=== PATIENT | female | born 2000 | race Caucasian/White ===

== ENCOUNTER 2021-01-16 17:38 | Emergency (ER) | payer OTHER, SELFPAY ==
[2021-01-16 17:52] VITALS: BP 116/76; PULSE 93; RESP 18; TEMP 36.5; O2SAT 100
--- NOTE | 2021-01-16 18:14 | ED.URI ---
HPI - URI/Sore Throat General Chief Complaint: Upper Respiratory Infection Stated Complaint: Sore Throat Source: patient, family and RN notes reviewed Mode of arrival: ambulatory Limitations: no limitations History of Present Illness HPI Narrative: Patient states she woke up with sore throat this am, rates pain 8/10. Patient states she has headache and nasal congestion. Reports she has not used any OTC medications or therapies. Patient states nothing makes it better and eating or drinking makes it worse. Denies fever, chills, or other symptoms. MD elicited complaint: sore throat Related Data Home Medications Medication Instructions Recorded Confirmed norethindrone-e.estradiol-iron [Lo 1 tablet PO DAILY 01/16/21 01/16/21 Loestrin Fe] Allergies Allergy/AdvReac Type Severity Reaction Status Date / Time No Known Allergies Allergy Verified 01/16/21 18:14 Review of Systems Review of Systems: CONSTITUTIONAL: Denies body aches, fever, chills, or sweats. EYES: Denies visual changes, redness, or discharge. ENT: + rhinorrhea, +congestion, + sore throat. Denies otalgia CARDIOVASCULAR: Denies chest pain, palpitations, or edema. RESPIRATORY: Denies cough or dyspnea. GASTROINTESTINAL: Denies abdominal pain, nausea, vomiting, or diarrhea. GENITOURINARY: Denies dysuria or hematuria. SKIN: Denies rash, itching, or wounds. MUSCULOSKELETAL: Denies back pain, joint pain, or myalgia. NEUROLOGIC: Denies headache, numbness, tingling, or weakness. PSYCH: Denies depression or anxiety. PMFSH Comments At time of signature, I have reviewed and agree with nursing past medical, surgical, social and family history unless otherwise noted. Please see nursing chart for further information. There is no relevant family history pertinent to the presenting complaint. Exam Narrative: GENERAL: Well-appearing, well-nourished, and in no acute distress. HEAD: Normocephalic, atraumatic. EYES: EOMI. No redness or drainage. Conjunctivae normal. ENT: Mucous membranes pink and moist. Nares clear. Clear rhinorrhea. TMs normal bilaterally. Tonsils 3+ with erythema, no exudate. Uvula midline. NECK: Normal AROM. Supple. Bilateral anterior cervical chain lymphadenopathy CHEST: No respiratory distress. Clear to auscultation. HEART: Regular rate and rhythm. No murmur appreciated. Normal peripheral pulses. ABDOMEN: Soft, nontender, nondistended, normal active bowel sounds. MUSCULOSKELETAL: No bony tenderness. EXTREMITIES: Normal range of motion. No edema. SKIN: Warm, dry, no rash. Capillary refill normal. Normal skin turgor. NEURO: No focal deficits. Alert and oriented x3. Gait steady. PSYCH: Normal affect. No signs of depression or anxiety. Course Vital Signs Vital signs: Vital Signs Temperature 97.7 F 01/16/21 17:52 Pulse Rate 93 01/16/21 17:52 Respiratory Rate 18 01/16/21 17:52 Blood Pressure 116/76 01/16/21 17:52 Pulse Oximetry 100 01/16/21 17:52 Temperature 97.7 F 01/16/21 17:52 Pulse Rate 93 01/16/21 17:52 Respiratory Rate 18 01/16/21 17:52 Blood Pressure 116/76 01/16/21 17:52 Pulse Oximetry 100 01/16/21 17:52 Reviewed MDM - URI/Sore Throat Differential Diagnosis Differential diagnosis: Likely upper respiratory infection, viral infection and pharyngitis Lab Data Labs: Strep Screen Presumptive Negative *(Reference Range: Negative)* Strep Screen Presumptive Negative *(Reference Range: Negative)* Critical Care Time Critical Care Time Critical Care Time: No Discharge Plan Discharge Clinical Impression: Upper respiratory infection Patient Disposition: Home, Self-Care Condition: Stable Instructions: Upper Respiratory Infection (ED) Additional Instructions: Your symptoms are likely due to a viral illness, which is not treated with antibiotics. Virus symptoms can last fo
== END 2021-01-16 18:28 | disposition home or self-care (01) ==
PROVIDERS: Emergency Provider Nurse Practitioner; PCP Pediatrics
DX: J06.9 Acute upper respiratory infection, unspecified (principal)
CPT/HCPCS: 87081; 87880; 99213; G0463

== ENCOUNTER 2021-11-17 10:35 | Emergency (ER) | payer OTHER, SELFPAY ==
--- NOTE | 2021-11-17 10:44 | ED.URI ---
HPI - URI/Sore Throat General Chief Complaint: Upper Respiratory Infection Stated Complaint: uri Time Seen by Provider: 11/17/21 11:02 Source: patient and RN notes reviewed Mode of arrival: ambulatory Limitations: no limitations History of Present Illness HPI Narrative: 21-year-old female presents to the [facility] with needing a work note because she tested positive for COVID at home. Patient reports that her symptoms of a sore throat, cough and generalized body aches started yesterday. No treatment prior Related Data Home Medications Medication Instructions Recorded Confirmed norethindrone 1 mg-ethinyl 1 tablet PO DAILY 01/16/21 11/17/21 estradiol 10 mcg (24)-iron 10 mcg(2) tablet (Lo Loestrin Fe) multivitamin 1 tablet PO DAILY 08/29/21 11/17/21 vitamin B complex (Complex B-100 1 tablet PO DAILY 08/29/21 11/17/21 tablet,extended release) triamcinolone acetonide 0.1 % 1 applic topical DIRECTED 11/17/21 11/17/21 topical cream Allergies Allergy/AdvReac Type Severity Reaction Status Date / Time No Known Allergies Allergy Verified 11/17/21 11:22 Review of Systems Review of Systems: All systems reviewed & are unremarkable except as noted in HPI and below Constitutional: Constitutional: Reports no additional constitutional complaints, Reports body ache(s), Denies chills, Reports fatigue, Denies fever(s), Reports headache(s) and Reports lethargy Eyes: Eyes: Reports no additional eye complaints ENT: Reports as per HPI and Reports sore throat Cardiovascular: Cardiovascular: Reports no additional cardiovascular complaints Respiratory: Respiratory: Reports no additional respiratory complaints Gastrointestinal: Gastrointestinal: Reports no additional gastrointestinal complaints Musculoskeletal: Musculoskeletal: Reports no additional musculoskeletal complaints Integumentary/Breasts: Skin/Breast: Reports system reviewed and no additional complaints, except as docu Neurologic: Reports system reviewed and no additional complaints, except as documented Psychiatric: Psychiatric: Reports no additional psychiatric complaints Allergic/Immunologic: Allergic/Immunologic: Reports no additional allergic/immunologic complaints PMFSH Past Medical History Medical History Anemia Anxiety Depression Migraine Surgical History Surgical History No pertinent past surgical history Family History Family History Mother Asthma Hypertension Depression Anxiety Father Hypertension Sibling Hypertension Grandparent Hypertension Social History Social History Smoking status: Never smoker Alcohol intake: never Substance use: never Substance use type: does not use Comments At the time of my signature, I reviewed and agree with the nursing past medical, surgical, social, and family history. There is no relevant family history pertinent to the patient complaint. Exam Const: General: healthy appearing, no acute distress and alert Nutritional Appearance: well nourished Orientation/consciousness: patient oriented x3 Limitations: no limitations HENMT: Head: normal to inspection Ears: external ears normal, TM's normal bilaterally and EAC's normal General nose exam: Normal external nose present Face and sinus: normal facial exam Throat: posterior oropharynx normal and uvula midline Eyes: General: appearance normal, both eyes and all related structures Pupils: Equal, round and reactive pupils present Neck: Neck: normal visual inspection, no lymphadenopathy and no meningeal signs Chest: Chest palpation & inspection: normal inspection of the chest Resp: Effort & Inspection: normal respiratory effort and no use of accessory muscles Auscultation: clear to auscultation bilaterally, n
[2021-11-17 10:47] VITALS: BP 95/59; PULSE 115; RESP 18; TEMP 37.8; O2SAT 97
== END 2021-11-17 11:16 | disposition home or self-care (01) ==
PROVIDERS: Emergency Provider Nurse Practitioner; PCP Physician Assistant
DX: U07.1 COVID-19 (principal); F41.9 Anxiety disorder, unspecified; F32.A Depression, unspecified
CPT/HCPCS: 87426; 99213; C9803; G0463

== ENCOUNTER → 2022-07-18 15:20 | Outpatient (CLI) | payer OTHER, SELFPAY ==
--- NOTE | ~2022-07-18 | US_ITS ---
EXAMINATION: US thyroid DATE: 07/18/2022 15:35 INDICATION: Localized swelling, mass and lump, neck. TECHNIQUE: Multiple ultrasound images of the thyroid were obtained. COMPARISON: None. FINDINGS: The right thyroid lobe measures 4.7 x 1.1 x 1.7 cm. The left thyroid lobe measures 3.7 x 1.3 x 1.3 c m. There is normal echotexture and echogenicity throughout the thyroid gland. No discrete nodules id entified. Normal vascular flow is present. IMPRESSION: 1. Normal thyroid. Reviewed, dictated and finalized at location A. IMPRESSION: 1. Normal thyroid.
== END ==
PROVIDERS: PCP Physician Assistant; Visit Provider Physician Assistant
DX: R22.1 Localized swelling, mass and lump, neck (principal)
CPT/HCPCS: 76536

== ENCOUNTER 2022-10-11 08:29 | Outpatient (CLI) | payer OTHER, SELFPAY ==
--- NOTE | 2022-11-01 10:42 | WPDSLEEPSTUD ---
Sleep Study Date of Study: 10/11/22 Ordering Provider: Brooklyn Monaco DO Interpreting Physician: Cristina Nolasco MD Sleep Study Type: Multiple Sleep Latency Test Height: 1.55 m Weight: 50.349 kg Body Mass Index: 20.9 Neck Circumference (inches): 12 [place]: 14 Reason for Sleep Study Hypersomnolence Sleep History Tiffany Maier is a 22-year-old female with history of hypersomnolence who is having a basic polysomnogram followed by MSLT for complaints of excessive daytime sleepiness, randomly falling asleep beginning at the age of 14. She falls asleep in inappropriate places such as school, work and while driving. She is tired all the time. She Never awakens from sleep short of breath. She never awakens at night with heartburn, belching or cough.??She never snores, never snores loudly enough that others complain. She rarely has trouble sleeping when she has a cold. She never suddenly wakes up gasping for breath during the night. She never has breathing problems at night. She never sweats excessively at night. She never notices her heart pounding or beating irregularly during the night. She constantly falls asleep during the day, frequently falls asleep involuntarily and occasionally falls asleep while driving. She never experiences loss of muscle tone with strong emotion. S she constantly experiences daytime difficulty at work and at school due to excessive sleepiness. She never feels paralyzed on waking or falling asleep. She rarely experiences vivid dreams upon waking or falling asleep. She never feels afraid of going to sleep. She rarely has nightmares. She rarely recalls her dreams. She frequently has thoughts racing through her mind. She frequently feels sad or depressed. She frequently feels anxiety or worry about things. She never notices parts of her body jerk. She constantly kicks during the night. She occasionally feels crawling or aching feelings in her legs. She rarely feels leg pain at night. She never grinds her teeth or has morning jaw pain. She frequently feels bothered by pain during the day and awakened by pain during the night. She never wakes up feeling stiff in the morning. she occasionally awakens with sore achy muscles. She frequently wakes up with pain in the neck and spine. She has memory problems, fatigue, palpitations and feels depressed. On occasion she takes melatonin to help go to sleep. ? ? Normal bedtime is Between 11:30 p.m. and 12 midnight, taking 10 minutes or sometimes up to 1 hour to fall asleep. She typically wakes twice at night for just a minute or 2. She may sit up, fall back asleep, open her eyes and look around. She wakes the morning between 7:30 a.m. and 8:30 a.m.. On weekends, her bedtime schedule is the same, 11:30 p.m. to 1:00 a.m. and she wakes between 8:30 a.m. and 9:00 a.m.., taking about [ ] fall asleep. She typically gets about 7 to 8 hours of sleep per night. In general she does take naps in the afternoon or evening. Short naps are not refreshing. She is usually drowsy for 2 hours after waking. She feels better in the evening compared to other times of day. Habits:??Tobacco: Never Caffeine : 1-2 per day. Alcohol : None. Recreational substances : none PMFSH Past Medical History Medical History Anemia Anxiety Depression Migraine Surgical History Surgical History No pertinent past surgical history Family History Family History Mother Asthma Hypertension Depression Anxiety Father Hypertension Sibling Hypertension Grandparent Hypertension Social History Social History Smoking status: Never smoker Alcohol intake: never Substance use: never Substance use type: does not use Lack of Transportation: No
[2022-11-01 11:49] VITALS: BMI 20.9
--- NOTE | 2022-11-01 11:49 | WPDSLEEPSTUD ---
Sleep Study Date of Study: 10/11/22 Ordering Provider: Brooklyn Monaco DO Interpreting Physician: Cristina Nolasco MD Sleep Study Type: Multiple Sleep Latency Test Height: 1.55 m Weight: 50.349 kg Body Mass Index: 20.9 Neck Circumference (inches): 12 [place]: 14 Reason for Sleep Study Excessive daytime sleepiness Sleep History Please see sleep history from nocturnal polysomnogram the night before the study. She had a normal sleep study with over 6 hours of sleep and an AHI of 0. She proceeded to an MSLT. [facility] Past Medical History Medical History Anemia Anxiety Depression Migraine Surgical History Surgical History No pertinent past surgical history Family History Family History Mother Asthma Hypertension Depression Anxiety Father Hypertension Sibling Hypertension Grandparent Hypertension Social History Social History Smoking status: Never smoker Alcohol intake: never Substance use: never Substance use type: does not use Lack of Transportation: No Lack of Food: Never True Current Housing: I Have Housing Concerned About Future Housing: No Difficulty Paying Gas/Electric Bills: No Difficulty Paying for Meds: No Currently Unemployed: No Education: High School Diploma/GED Difficulty w/ Childcare or Family Care: No Living arrangements: with family Gender identity (if verbalized by the patient): Female Medications Home Medications Medication Instructions Recorded Confirmed Type norethindrone 1 mg-ethinyl 1 tablet PO DAILY 01/16/21 08/08/22 History estradiol 10 mcg (24)-iron 10 mcg(2) tablet (Lo Loestrin Fe) sumatriptan succinate 50 mg tablet See Rx Instructions PO .COMPLEX 08/13/22 10/17/22 Rx #10 tabs dextroamphetamine-amphetamine ER 20 mg PO BID #60 caps 10/09/22 Rx 20 mg 24hr capsule,extend release (Adderall XR) sertraline 25 mg tablet 25 mg PO DAILY #7 tabs 10/17/22 10/17/22 Rx sertraline 50 mg tablet 50 mg PO DAILY #90 tabs 10/17/22 10/17/22 Rx Sleep Procedure The recording montage for the MSLT includes central EEG (C3-A2, C4-A1) and occipital (O1-A2, O2-A1) derivations, left and right eye electrooculograms (EOGs), mental/submental electromyogram (EMG), and electrocardiogram (EKG). Nap 1 commenced at The recording montage for the MSLT includes central EEG (C3-A2, C4-A1) and occipital (O1-A2, O2-A1) derivations, left and right eye electrooculograms (EOGs), mental/submental electromyogram (EMG), and electrocardiogram (EKG). Nap 1 commenced at 8:15 a.m.. Sleep latency 11.8 minutes. No REM. Nap 1 was terminated at 8:42 a.m.. The patient said that sleep occurred. The patient reported no dreaming. Nap 2 commenced at 10:10 a.m.. Sleep latency 8.9 minutes. No REM. Nap 2 was terminated at 1034. The patient said that sleep did not occur. The patient reported no dreaming. Nap 3 commenced at 12 12 p.m. Sleep latency 16.4 minutes. No REM. Nap 3 was terminated at 12:44 p.m. The patient said that sleep occurred. The patient reported no dreaming. Nap 4 commenced at 2:08 p.m.. Sleep latency 17.5 minutes. No REM. Nap 4 was terminated at 2:42 p.m.. The patient said that sleep occurred. The patient reported no dreaming. The 5th nap was canceled because the prior 4 naps showed a normal sleep latency and no sleep onset REM periods. The mean sleep latency is 13.7 minutes, normal. This test does not support a diagnosis of narcolepsy or idiopathic hypersomnolence. She perceived sleep on 3 of 4 naps, slept on all 4 naps. Sleep Architecture NA Respiratory Analysis NA Arousals NA Periodic Limb Movements NA Oximetry Data NA Snoring Profile NA Cardiac Profile NA EEG Profile NA Assess
[2022-11-01 12:08] VITALS: BMI 20.9
== END 2022-10-12 15:39 | disposition home or self-care (01) ==
PROVIDERS: PCP Family Medicine; Visit Provider Family Medicine
DX: G47.19 Other hypersomnia (principal)
CPT/HCPCS: 95805; 95810; 99199

== ENCOUNTER → 2022-11-26 15:00 | Outpatient (CLI) | payer OTHER, SELFPAY ==
--- NOTE | ~2022-11-26 | MR_ITS ---
EXAMINATION: MR brain/brain stem wo/w con DATE: 11/26/2022 15:42 INDICATION: Worsening hypersomnia. TECHNIQUE: Magnetic resonance imaging (MRI) of the brain and brainstem was performed without and with 10 mL MultiHance intravenous contrast. COMPARISON: None. FINDINGS: There is no intracranial hemorrhage, acute infarction, or abnormal intracranial mass lesion . The ventricles are normal in size. The paranasal sinuses are clear. The orbits are normal. The mast oid air cells are normal. IMPRESSION: 1. Normal brain. Reviewed, dictated and finalized at location A. IMPRESSION: 1. Normal brain.
== END ==
PROVIDERS: PCP Physician Assistant; Visit Provider Family Medicine
DX: G47.19 Other hypersomnia (principal)
CPT/HCPCS: 70553; A9577

== ENCOUNTER 2023-03-04 08:28 | Emergency (ER) | payer OTHER, SELFPAY ==
[2023-03-04 08:40] VITALS: BP 101/85; PULSE 102; RESP 16; TEMP 37; O2SAT 100
--- NOTE | 2023-03-04 08:56 | ED.URI ---
HPI - URI/Sore Throat General Chief Complaint: Upper Respiratory Infection Stated Complaint: Sinus Time Seen by Provider: 03/04/23 08:59 Source: patient and RN notes reviewed Mode of arrival: ambulatory Limitations: no limitations History of Present Illness HPI Narrative: 23-year-old female presents with concern for nasal congestion, rhinorrhea, sore throat that started last night. She reports chills and body aches night. She reports taking pseudoephedrine and Tylenol. She reports she has been around people with similar symptoms MD elicited complaint: sore throat and nasal congestion Related Data Home Medications Medication Instructions Recorded Confirmed norethindrone 1 mg-ethinyl 1 tablet PO DAILY 01/16/21 03/04/23 estradiol 10 mcg (24)-iron 10 mcg(2) tablet (Lo Loestrin Fe) Allergies Allergy/AdvReac Type Severity Reaction Status Date / Time No Known Allergies Allergy Verified 03/04/23 08:33 Review of Systems Review of Systems: CONSTITUTIONAL: Reports malaise, chills EYES: Denies visual changes, redness, or discharge. ENT: Reports rhinorrhea, congestion, and sore throat. CARDIOVASCULAR: Denies chest pain, palpitations, or edema. RESPIRATORY: Reports cough. Denies dyspnea. GASTROINTESTINAL: Denies abdominal pain, nausea, vomiting, diarrhea SKIN: Denies rash or itching. MUSCULOSKELETAL: Reports myalgia. NEUROLOGIC: Denies headache. All systems reviewed & are unremarkable except as noted in HPI and below PMFSH Past Medical History Medical History Anemia Anxiety Depression Migraine Surgical History Surgical History No pertinent past surgical history Family History Family History Mother Asthma Hypertension Depression Anxiety Father Hypertension Sibling Hypertension Grandparent Hypertension Social History Social History Smoking status: Never smoker Alcohol intake: never Substance use: never Substance use type: does not use Lack of Transportation: No Lack of Food: Never True Current Housing: I Have Housing Concerned About Future Housing: No Difficulty Paying Gas/Electric Bills: No Difficulty Paying for Meds: No Currently Unemployed: No Education: High School Diploma/GED Difficulty w/ Childcare or Family Care: No Living arrangements: with family Gender identity (if verbalized by the patient): Female Comments At time of signature, agree with nursing past medical, surgical, social and family history. There is no relevant family history pertinent to the presenting complaint Exam Narrative: GENERAL: Well-appearing, well-nourished, and in no acute distress. HEAD: Normocephalic EYES: PERRLA, conjunctivae clear ENT: Nares clear, clear discharge. Mucous membranes moist. TM pearly meraz with dull light reflex bilaterally; no tragal tenderness. Oropharynx not erythematous without lesions. Tonsils not enlarged and without exudate, no drooling, no hoarseness, no trismus, uvula midline. NECK: Supple. No lymphadenopathy CHEST: Clear to auscultation, breath sounds equal. No wheezing, rhonchi, rales, or stridor. No respiratory distress, speaks in full sentences. HEART: Regular rate and rhythm. No murmur heard. SKIN: Warm, dry, no rash. NEURO: Alert and oriented x3. PSYCH: Normal mood and affect Course Course Emergency Course: Patient is aware of diagnosis, understands and agrees to treatment plan. Anticipatory guidance given. Patient agrees to follow-up as directed and is aware of reasons to seek care at the emergency department. Portions of this record may have been created with voice recognition software Level of Care: Express Care Visit Vital Signs Vital signs: Vital Signs Temperature 98.6 F 03/04/23 08:40 P
== END 2023-03-04 09:10 | disposition home or self-care (01) ==
PROVIDERS: Emergency Provider Nurse Practitioner; PCP Physician Assistant
DX: J06.9 Acute upper respiratory infection, unspecified (principal); Z20.822 Contact with and (suspected) exposure to COVID-19
CPT/HCPCS: 87081; 87426; 87880; 99213; C9803; G0463

== ENCOUNTER 2023-05-17 18:21 | Emergency (ER) | payer OTHER, SELFPAY ==
--- NOTE | ~2023-05-17 | XR_ITS ---
EXAMINATION: XR sacrum coccyx min 2V DATE: 05/17/2023 18:44 INDICATION: Sacrococcygeal pain post fall on ice one week prior TECHNIQUE: AP, angled AP and lateral views of the sacrum and coccyx were obtained. COMPARISON: Obstructive series dated 10/22/2008 FINDINGS: Mild lower lumbar levocurvature. Sacral arches are intact. No fractures. Lateral hip and sacroiliac j oint spaces are normal. IMPRESSION: 1. No acute osseous abnormality. Reviewed, dictated and finalized at location A. [employer]
--- NOTE | 2023-05-17 18:31 | ED.BACK ---
HPI - Back Pain/Injury General Chief Complaint: Fall Stated Complaint: Lower Back Pain Time Seen by Provider: 05/17/23 18:30 Source: patient Mode of arrival: ambulatory Limitations: no limitations History of Present Illness HPI Narrative: Tiffany is a 23-year-old female patient presenting to the clinic today with complaints tailbone/sacrum pain. She reports last week she fell on the ice on concrete steps and landed on her butt. She is complaining of pain was worse with movement. Related Data Home Medications Medication Instructions Recorded Confirmed norethindrone 1 mg-ethinyl 1 tablet PO DAILY 01/16/21 05/17/23 estradiol 10 mcg (24)-iron 10 mcg(2) tablet (Lo Loestrin Fe) Allergies Allergy/AdvReac Type Severity Reaction Status Date / Time No Known Allergies Allergy Verified 05/17/23 18:32 Review of Systems Review of Systems: Pertinent positives per HPI. Patient denies any fever, chills, rash, headache, visual changes, dizziness, cough, runny nose, sore throat, shortness of breath, chest pain, palpitations, nausea, vomiting, diarrhea, constipation, abdominal pain, or any urinary issues. [facility] Past Medical History Medical History Anemia Anxiety Depression Migraine Surgical History Surgical History No pertinent past surgical history Family History Family History Mother Asthma Hypertension Depression Anxiety Father Hypertension Sibling Hypertension Grandparent Hypertension Social History Social History Smoking status: Never smoker Alcohol intake: never Substance use: never Substance use type: does not use Lack of Transportation: No Lack of Food: Never True Current Housing: I Have Housing Concerned About Future Housing: No Difficulty Paying Gas/Electric Bills: No Difficulty Paying for Meds: No Currently Unemployed: No Education: High School Diploma/GED Difficulty w/ Childcare or Family Care: No Living arrangements: with family Gender identity (if verbalized by the patient): Female Comments At the time of my signature, I reviewed and agree with the nursing past medical, surgical, social, and family history. There is no relevant family history pertinent to the patient complaint. Exam Narrative: General: Well-developed, well nourished, in no apparent distress Head: Normocephalic, atraumatic. Cardio: Regular rate and rhythm, s1 and s2 normal, no murmur appreciated. Resp: Clear to auscultation bilaterally, no rhonchi, rales, wheezing or rubs. Musculoskeletal: No deformity, no bruising or swelling noted, mild tender to palpation over the coccyx, grossly normal range of motion, muscle strength strong and equal, peripheral pulse strong, no edema, no cyanosis, normal gait and station Course Course Emergency Course: Portions of this record may have been created with voice recognition software. Level of Care: Express Care Visit Vital Signs Vital signs: Vital signs reviewed MDM - Back Pain/Injury MDM Narrative Medical decision making narrative: At the time of visit patient is resting comfortably on the exam table. Patient appears to be nontoxic. Diagnostics: Coccyx/sacrum x-ray was performed was negative for any sign of fracture or malalignment. Plan: I suspect patient has contusion of the coccyx/coccydynia. Supportive measures were discussed with the patient and they voiced understanding discharge instructions and agrees to treatment plan. Return precautions reviewed Differential Diagnosis Differential diagnosis: Likely other (Tailbone pain, tailbone fracture, contusion) Discharge Plan Discharge Clinical Impression: Coccyxdynia Contusion of coccyx Qualifiers: Encounter type: initial encounter Mike
[2023-05-17 18:32] VITALS: BP 115/68; PULSE 107; RESP 16; TEMP 36.6; O2SAT 100
== END 2023-05-17 19:21 | disposition home or self-care (01) ==
PROVIDERS: Emergency Provider Nurse Practitioner Family; PCP Physician Assistant
DX: M53.3 Sacrococcygeal disorders, not elsewhere classified (principal); S30.0XXA Contusion of lower back and pelvis, initial encounter; W00.0XXA Fall on same level due to ice and snow, initial encounter
CPT/HCPCS: 72220; 99213; G0463

== ENCOUNTER 2024-02-28 13:32 | Outpatient (CLI) | payer OTHER, SELFPAY ==
--- NOTE | ~2024-02-28 | MR_ITS ---
EXAMINATION: MR lumbar spine wo/w con DATE: 02/28/2024 14:18 INDICATION: Low back pain TECHNIQUE: Magnetic resonance imaging (MRI) of the lumbar spine was performed without intravenous con trast. Sequences included sagittal T2-weighted FSE, sagittal T2-weighted FS FSE, sagittal T1-weighted FSE, and axial T2-weighted FSE. COMPARISON: None FINDINGS: Alignment is normal. Vertebral body heights are normal. Normal marrow signal. Disc heights are mari l. Mild annular fissures at L2-L3, L3-L4 and L4-L5. The conus medullaris terminates at L1-L2. There i s normal signal in the caudal spinal cord. No abnormally enhancing lesions identified. Paravertebral soft tissues are unremarkable. The following disc levels are specifically discussed: T12-L1: Disc is minimally bulging. There is no facet joint osteoarthritis. There is no neural foramin al stenosis. There is no central canal stenosis. L1-L2: Disc is mildly bulging. There is no facet joint osteoarthritis. There is no neural foraminal s tenosis. There is minimal central canal stenosis. L2-L3: Disc is mildly bulging. There is no facet joint osteoarthritis. There is no neural foraminal s tenosis. There is minimal central canal stenosis. L3-L4: Disc is mildly bulging. There is mild right facet joint osteoarthritis. There is no neural for aminal stenosis. There is minimal central canal stenosis. L4-L5: Disc is mildly bulging. There is no facet joint osteoarthritis. There is minimal bilateral theresa ral foraminal stenosis. There is minimal central canal stenosis. L5-S1: Small central disc protrusion. There is mild bilateral facet joint osteoarthritis. There is no neural foraminal stenosis. There is no central canal stenosis. IMPRESSION: 1. Minimal to mild lumbar spondylosis. Reviewed, dictated and finalized at location B. JAVA PROGRAMMER
== END 2024-02-28 13:33 | disposition home or self-care (01) ==
LOC: MICIMG 13:32
PROVIDERS: PCP Family Medicine; Visit Provider Student in an Organized Health Care Education/Training Program
DX: M54.50 Low back pain, unspecified (principal)
CPT/HCPCS: 72158; A9577

== ENCOUNTER 2024-05-02 09:40 | Emergency (ER) | payer SELFPAY ==
[2024-05-02 09:52] VITALS: BP 126/77; PULSE 104; RESP 14; TEMP 36.8; O2SAT 100
--- NOTE | 2024-05-02 10:11 | ED_ITS ---
HPI - URI/Sore Throat General Chief Complaint: Upper Respiratory Infection Stated Complaint: Sore Throat Time Seen by Provider: 05/02/24 10:10 Source: patient Mode of arrival: ambulatory Limitations: no limitations History of Present Illness HPI Narrative: Indy is a 24-year-old female patient presenting to the clinic today with complaints of runny nose, nonproductive cough, postnasal drip, and sore throat x6 days. Denies any fevers, chills, or body aches. No chest pain or shortness of breath. No known exposure to any sick contacts MD elicited complaint: cough, sore throat and nasal congestion Related Data Home Medications ?Medication ?Instructions ?Recorded ?Confirmed ?Last Taken ?Type norethindrone 1 mg-ethinyl 1 tablet PO DAILY 01/16/21 08/15/23 Unknown History estradiol 10 mcg (24)-iron 10 mcg(2) tablet (Lo Loestrin Fe) lisdexamfetamine 40 mg capsule mg 05/02/24 Unknown History sumatriptan succinate 50 mg tablet mg PO 05/02/24 Unknown History Allergies Allergy/AdvReac Type Severity Reaction Status Date / Time No Known Allergies Allergy Verified 05/02/24 09:53 Review of Systems Review of Systems: Pertinent positives per HPI. Patient denies any fever, chills, rash, headache, visual changes, dizziness, shortness of breath, chest pain, palpitations, nausea, vomiting, diarrhea, constipation, abdominal pain, or any urinary issues. PMFSH Past Medical History Medical History Anxiety Depression Migraine Anemia Surgical History Surgical History No pertinent past surgical history Family History Family History Mother Asthma Hypertension Depression Anxiety Father Hypertension Sibling Hypertension Grandparent Hypertension Social History Social History Smoking status: Never smoker Alcohol intake: never Substance use: never Substance use type: does not use Lack of Transportation: No Lack of Food: Never True Current Housing: I Have Housing Concerned About Future Housing: No Difficulty Paying Gas/Electric Bills: No Difficulty Paying for Meds: No Currently Unemployed: No Education: High School Diploma/GED Difficulty w/ Childcare or Family Care: No Living arrangements: with family Gender identity (if verbalized by the patient): Female Comments At the time of my signature, I reviewed and agree with the nursing past medical, surgical, social, and family history. There is no relevant family history pertinent to the patient complaint. Exam Narrative: General: Well-developed, well nourished, in no apparent distress Head: Normocephalic, atraumatic Eyes: Pupils equally round and reactive to light bilaterally, EOM intact, sclera and conjunctive clear, no discharge, lids normal Ears: TMs intact and clear, ear canals clear, no drainage, grossly hearing normal. Nose: Nares patent, clear nasal discharge, mild inflammation, no sinus tenderness. Mouth: Oral pharynx without lesions or masses, good dentition, MMM. Postnasal drip Neck: Supple, trachea midline, no enlargement of anterior or posterior cervical nodes, no thyroid masses or goiter palpable. Cardio: Regular rate and rhythm, s1 and s2 normal, no murmur appreciated. Resp: Clear to auscultation bilaterally, no rhonchi, rales, wheezing or rubs Course Course Emergency Course: Portions of this record may have been created with voice recognition software. Level of Care: Express Care Visit Vital Signs Vital signs: Vital Signs Temperature 36.8 C 05/02/24 09:52 Pulse Rate 104 H 05/02/24 09:52 Respiratory Rate 14 05/02/24 09:52 Blood Pressure 126/77 05/02/24 09:52 Pulse Oximetry 100 05/02/24 09:52 Oxygen Delivery Room Air 05/02/24 09:52 Temperature 36.8 C 05/02/24 09:52 Pulse Rate 104 H 05/02/24 09:52 Respiratory Rate 14 05/02/24 09:52 Blood Pressure 126/77 05/02/24 09:52 Pulse Oximetry 100 05/02/24 09:52 Oxygen Delivery Room Air 05/02/24 09:52 Vital signs reviewed MDM - URI/Sore Throat MDM Narrative Medical decision making narrative: At the time of visit patient is resting comfortably on the exam table. Patient appears to be nontoxic. Labs: Strep, COVID, and influenza testing was all performed. All testing was negative. We will send strep for culture. Plan: I suspect patient has URI/pharyngitis/postnasal drip. Will send in prescription for prednisone. Supportive measures were discussed with the patient and they voiced understanding discharge instructions and agrees to treatment plan. Return precautions reviewed Differential Diagnosis Differential diagnosis: Likely upper respiratory infection, otitis media, sinusitis, viral infection, bronchitis, influenza, pharyngitis and other (COVID) Discharge Plan Discharge Clinical Impression: Upper respiratory infection Qualifiers: URI type: unspecified URI Qualified Code(s): J06.9 - Acute upper respiratory infection, unspecified Pharyngitis Qualifiers: Pharyngitis/tonsillitis etiology: unspecified etiology Qualified Code(s): J02.9 - Acute pharyngitis, unspecified Patient Disposition: Home, Self-Care Condition: Stable Instructions: Antibiotic Form, Pharyngitis (ED), Cold Symptoms (ED) Additional Instructions: Strep, COVID, and influenza testing was all negative in the clinic today. We will send strep for culture. Take prescription medications only as prescribed-prednisone Increase fluids and stay well hydrated Tylenol/motrin for pain/fever Flonase and OTC antihistamines as directed Vicks vapor rub to open sinuses Sinus rinses for congestion Cepacol spray, cough drops, throat lozenges, warm tea with honey/lemon, gargle salt water to soothe throat BRAT diet for diarrhea Clear liquids x 24 hours then advance as tolerated for nausea/vomiting Go to the ED if you develop a worsening in your condition- high fever not controlled by Tylenol or Motrin, dehydration, weakness, lethargy, shortness of breath, or chest pain. Follow up with your PCP in 3-5 days if symptoms persist. Patient Language: Persian Prescriptions: New prednisone 20 mg tablet 40 mg PO DAILY 5 Days Qty: 10 0RF No Action Lo Loestrin Fe 1 mg-10 mcg (24)/10 mcg (2) tablet 1 tablet PO DAILY lisdexamfetamine 40 mg capsule sumatriptan succinate 50 mg tablet PO Follow-up/Referrals: Judith Frankel MD [Primary Care Provider] - Time of Disposition: 10:25 Quality NIHSS Nursing Documentation ED NIHSS nursing documentation: reviewed/agree
[2024-05-02 10:32] LABS: EDCOVIDSCREEN Negative (Negative); EDINFLUASCREEN Negative (Negative); EDINFLUBSCREEN Negative (Negative)
[2024-05-02 10:32] LABS: EDSTREPNEGPOS1 Negative (Negative)
== END 2024-05-02 10:30 | disposition home or self-care (01) ==
PROVIDERS: Emergency Provider Nurse Practitioner Family; PCP Family Medicine
DX: J06.9 Acute upper respiratory infection, unspecified (principal); J02.9 Acute pharyngitis, unspecified; Z20.822 Contact with and (suspected) exposure to COVID-19
CPT/HCPCS: 87081; 87426; 87804; 87880; 99213; G0463

== ENCOUNTER 2024-06-29 13:46 | Outpatient (CLI) | payer OTHER, SELFPAY ==
--- NOTE | ~2024-06-29 | MR_ITS ---
MRI of the pelvis Clinical history sacroiliitis TECHNIQUE: Coronal T1-weighted and STIR images, axial T1-weighted and STIR images, and sagittal T1-we ighted and STIR images were acquired through the pelvis. FINDINGS: There is no fracture or avascular necrosis of either hip. Bone marrow signals in the proxim al femora and pelvic bones are unremarkable. Bilateral hip joint spaces are intact. Bilateral SI join ts are intact. No evidence of reactive marrow edema, degenerative change, or inflammatory change. No joint effusion seen. No joint space widening. No ankylosis. Visualized musculature about the pelvis is intact. No muscle atrophy or edema. Visualized tendons are intact. No soft tissue mass or fluid collection. IMPRESSION: No significant abnormality. No evidence for sacroiliitis. Reviewed, dictated and finalized at [facility].
== END 2024-06-29 13:47 | disposition home or self-care (01) ==
LOC: MICIMG 13:47
PROVIDERS: PCP Family Medicine; Visit Provider Anesthesiology Pain Medicine
DX: M46.1 Sacroiliitis, not elsewhere classified (principal); M47.816 Spondylosis without myelopathy or radiculopathy, lumbar region; F32.1 Major depressive disorder, single episode, moderate; F41.9 Anxiety disorder, unspecified
CPT/HCPCS: 72195

== ENCOUNTER 2024-09-08 07:37 | Day surgery (SDC) | payer OTHER, SELFPAY ==
[2024-08-21 13:40] VITALS: BMI 21.3
--- NOTE | ~2024-09-08 | XR_ITS ---
INTRAOPERATIVE FLUOROSCOPY: CLINICAL HISTORY: 24 years old Female; LEFT INTRA-ARTICULAR SI JT INJ PROCEDURE COMMENTS: Limited intraoperative fluoroscopy of the pelvis was performed. CUMULATIVE DOSE: 2.9 mGy FLUOROSCOPY TIME: 25 seconds FINDINGS/IMPRESSION: Please refer to operative note for further details. Reviewed, dictated and finalized at location A.
--- OUTSIDE RECORDS SUMMARY | 2024-09-08 07:51 | XMS_ITS | Clinical Summary ---
Author Organization [facility] Address [address], [facility] [address] [place] [address] Phone Care Team Providers Care Gel Coat Sprayer Name Role Phone Marco Antonio Perez MD Unavailable R[place]al Hills Primary Care Provider Allergies No known active allergies Medications Lo Loestrin Fe 1 MG-10 MCG / 10 MCG Tablet Take 1 Tablet by mouth daily. 2 Active Cholecalciferol (Vitamin D3) 1.25 MG (34839 UT) Capsule TAKE ONE CAPSULE BY MOUTH ONCE A WEEK ON THE SAME DAY FOR 8 WEEKS 2 Active cyanocobalamin (VITAMIN B-12) 1000 MCG/ML Solution ADMINISTER 1 ML UNDER THE SKIN EVERY MONTH 2 Active Multiple Vitamin (Multi-Vitamin) Tablet Take by mouth. Activ e CRANBERRY PO Take by mouth. Ac tive Aspirin-Acetami nophen-Caffeine (EXCEDRIN PO) Take by mouth. A ctive Family History Medical History Relation Name Comments Hypertension Brother Hypertension Father Anemia Mother Asthma Mother Hypertension Mother Relation Name Status Comments Brother Father Mother Social History Tobacco Use Types Packs/Day Years Used Date Smoking Tobacco: Never Smokeless Tobacco: Never PHQ-2 Answer Date Recorded Total Score - Questions 1-9 0 08/14 Comments Unknown Sex and Gender Information Value Date Recorded Sex Assigned at Not on file Legal Sex Female 2:05 PM CDT Gender Identity Not on file Sexual Orientation Not on file Last Filed Vital Signs Vital Sign Reading Time Taken Comments Blood Pressure 100/70 09/04/2021 9:02 AM CDT Pulse 82 09/04/2021 9:02 AM CDT Temperature 37 C (98.6 F) 09/04/2021 9:02 AM CDT Respiratory Rate 18 09/04/2021 9:02 AM CDT Oxygen Saturation 97% 09/04/2021 9:02 AM CDT Inhaled Oxygen Concentration - - Weight 51.3 kg (113 lb) 09/04/2021 9:02 AM CDT Height 154.9 cm (5' 1 ) 09/04/2021 9:02 AM CDT Body Mass Index 21.35 09/04/2021 9:02 AM CDT Plan of Treatment Health Maintenance Due Date Last Done Comments Hepatitis C Virus (HCV) Screening 2001 Human Papillomavirus (HPV) Immunization (1 - 3-dose series) 01/24/2016 Meningococcal B Immunization (1 of 2 - Standard) 2017 Influenza Immunization (#1) 12/15/20230 08/2017, 02/29/2012, 02/28/2008, Additional history exists SARS-COV-2 Immunization ( season) 2023 Respiratory Syncytial Virus (RSV) Immunization (Adult) (1 - 1-dose 75+ series) 01/24/2076 Hepatitis B Immunization Completed 002, 2001, 2001 DTaP/Tdap/Td Immunization Discontinued 2011, 07/25/2006, 08/04/2002, Additional history exists TdaP Immunization Completed 02/29/2012 Meningococcal Immunization (ACWY) Completed 11/25/2018, 10/23/2013 Pneumococcal Immunization Combined Aged Out No longer eligible based on patient's age to complete this topic Rotavirus Immunization Aged Out No lo nger eligible based on patient's age to complete this topic Insurance [employer] Care Teams Gel Coat Sprayer Relationship Specialty Start Date End Date Racheal Hills PAC [address] [place] [address] PCP - General Physician Hedis Specialist 09/04/21 Marco Antonio Perez MD [address] [place] [id number] Consulting Physician Oncology 07/27/21
--- OUTSIDE RECORDS SUMMARY | 2024-09-08 07:51 | XMS_ITS | Patient Health Record ---
Author Organization [facility] ([address]) Address [address] [address] Care Team Providers Care Military Communications Specialist Name Role Phone Judith Frankel Primary Care Provider Yessy Grimm Unavailable [phone] Allergies No Known Allergies Reason For Referral No Information Medications Medication SIG (Take, Route, Frequency, Duration) Notes Start Date End Date Status Triamcinolone Acetonide 0.1 % 1 application Externally Twice a day for 30 days 02/05/2024 Active SUMAtriptan Succinate 50 MG 1 tablet as needed, may take second dose at least 2 hours after first dose up to 4 tablets per day as needed Orally Once a day Active Lo Loestrin Fe 1 MG-10 MCG / 10 MCG 1 tablet Orally Once a day Active Immunizations Vaccine Route Administration Date Status Comme nts DTaP < 7 y/o Unknown 07/26/2023 Administered Portal Inf ormation Influenza Unknown 01/07/2024 Administered Portal Infor mation NOC PedvaxHIB Unknown 10/05/2002 Administered Portal In formation NOC Tdap Unknown 02/29/2024 Administered Portal Infor mation Hepatitis A Unknown 10/23/2013 Administered Portal Info rmation Social History Tobacco Use: Social History Observation Description Date Details (start date - stop date) Never Smoker NA - NA Smoking Smart Form: Question Answer Notes Are you a: never smoker Additional Findings:Tobacco Non-User Non-smoker for protestant reasons Problems Problem Type SNOMED Code ICD Code Onset Dates Problem Status W/U Status Risk Notes Problem Mild major depression, single episode (59497826) Major depressive disorder, single episode, mild (F32.0) Active confirmed Problem Generalized anxiety disorder (33082348) Generalized anxiety disorder (F41.1) Active confirmed Problem Cataplexy and narcolepsy (089661540) 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) Active confirmed Problem Chronic rhinitis (13934366) Chronic rhinitis (J31.0) Active confirmed Problem Allergy to other foods (Z91.018) Active confirmed Vital Signs Oximetry 99 % 02/05/2024 Blood pressure diastolic 77 mm Hg 02/05/2024 Height 61 in 02/05/2024 Blood pressure systolic 117 mm Hg 02/05/2024 Weight 120.0 lbs 02/05/2024 BMI 22.67 kg/m2 02/05/2024 Encounters Encounter Location Date Provider Diagnosis [facility] [address] [place] [address] 02/05/2024 Yessy Ojeda Chronic rhinitis J31.0 ; Dermatitis, unspecified L30.9 and Allergy to other foods Z91.018 Assessments Encounter Date Diagnosis (ICD Code) Assessment Notes Treatment Notes Treatment Clinical Notes Section Notes 02/05/2024 Chronic rhinitis (ICD-10 - J31.0) Given the history and symptoms, skin testing was performed to common aeroallergens to determine atopic status. Skin testing today was negative for aeroallergens. We discussed non allergic rhinitis including trigger factors of strong odors and changes in barometric pressure. 02/05/2024 Dermatitis, unspecified (ICD-10 - L30.9) We discussed daily bathing with Dove sensitive skin soap. Vanicream or CeraVe products to be used for moisturizers. Avoid all fragrant products. Monitor gloves at work that are problematic. We discussed that patch testing can be performed if needed in the future. Triamcinolone to be used prn and avoid application to the face. 02/05/2024 Allergy to other foods (ICD-10 - Z91.018) Beef IgE negative. We discussed that hair analysis is not a validated test for food allergies. No need for avoidance of food in her diet. She has eaten beef without event. 02/05/2024 Other Plan Of Treatment No Information Insurance Providers Payer Name Payer Address Payer Phone Subscriber Number Group Number Insured Name Patient Relationship to Insured Coverage Start Date Coverage End Date [facility] [address] [address] [place] [address] [phone] [id number] Kash Leal Child - Insured has Financial Responsibility 4 Medical (General) History Medical History History ICD Code Generalized anxiety disorder F41.1 Major depressive disorder, single episod e, mild F32.0 Narcolepsy with cataplexy G47.411 Surgical History Surgery Date(Month/Year) Hospitalization History Reason Date(Month/Year)
--- OUTSIDE RECORDS SUMMARY | 2024-09-08 07:51 | XMS_ITS | Encounter Summary ---
Author Organization [facility] Health Address [address] [place] [address] Care Team Providers Care Environmental Technology Professor Name Role Phone Ana Urbina MD Primary Care Provider [phone] Encounter Details Date Type Department Care Team (Late st Contact Info) Description 01/22/2015 [facility] Outpatient Visit [facility] [address] [place] [address] Unknown, Provider Social History Tobacco Use Types Packs/Day Years Used Date Smoking Tobacco: Never Assessed Comments No Sex and Gender Information Value Date Recorded Sex Assigned at Not on file Legal Sex Female 6:56 AM WAFER POLISHER Gender Identity Not on file Sexual Orientation Not on file documented as of this encounter Plan of Treatment Not on file documented as of this encounter Goals Goal Patient Goal Type Associated Problems Recent Progress Patient-Stated? Author Use safety retraint in car Lifestyle On track( 020 9:51 AM CDT) No Shilpi Elizondo RN documented as of this encounter Visit Diagnoses Not on filedocumented in this encounter Additional Health Concerns Infection Onset Date Last Indicated Resolved Time COVID-19 Under Investigation 04/06/2020 04/06/2020 04/06/2020 11:17 AM WAFER POLISHER COVID-19 Confirmed 04/06/2020 04/06/2020 1 4:33 AM WAFER POLISHER documented as of this encounter Care Teams Environmental Technology Professor Relationship Specialty Start Date End Date Ana Urbina MD PCP - General Pediatrics 06/25/14 documented as of this encounter
--- OUTSIDE RECORDS SUMMARY | 2024-09-08 07:51 | XMS_ITS | Clinical Summary ---
Author Organization [facility] Address [address] [place] [address] Care Team Providers Care Molybdenum Steamer Operator Name Role Phone Ana Urbina MD Primary Care Provider [phone] Source Comments [facility],non-owned Affiliates and Associated Physician Practices is amultiple site organization consisting of ambulatory clinics and hospital sitesin [place], [place], [place] and [place]. This disclosure is being madepursuant to the Care Everywhere program and may not contain all information available regarding this patient. Last updated 18.[facility] Allergies No known active allergies Medications * Be aware that medications may not be up to date on this document. Alwaysverify current medications with the patient. drospirenone-eth inyl estradiol (AILYN) 3-0.02 MG tablet Take 1 tablet by mouth once daily 10/27/2018 Active ferrous sulfate 325 (65 FE) MG tablet Take 1 tablet by mouth every 24 hours Active Active Problems Problem Noted Date Diagnosed Date Right knee pain 03/26/2017 Dysmenorrhea 08/03/2016 Fatigue 08/03/2016 Chronic constipation 10/23/2013 Immunizations Immunization Administration Dates Next Due DTaP VACCINE IM (6wk-6yrs) 07/25/2006,,2001,05/30,2001 HEP A PEDS 2 DOSE 10/23/2013,07/25/2006 HEP B VACCINE, PED/ADOL 2001,2001, HIB BOOSTER 10/05/2002, 2,2001,03/25 INFLUENZA VACCINE 02/28/2008,04/10/2007,03/11/20 07 INFLUENZA VACCINE, QUADR. (F LUZONE; FLULAVAL; FLUARIX; AFLURIA QUADRIVALENT; 6MO+), 0.5 ML (IIV4) 02/17/2018 Influenza Nasal 02/29/2012 MENINGOCOCCAL ACWY (MCV4P) VAC IM 11/25/2018,02/2014 MMR 07/25/2006,03/09/2002 PNEUMOCOCCAL CONJ, PEDS 03/09/2002,07/29,2001,03/25 POLIO IPV 07/25/2006, 3,2001,03/25 PPD 07/25/2006,03/09/2002 TDAP (7yrs+) 02/29/2012 VARICELLA 02/29/2012,08/04/2002 Social History Tobacco Use Types Packs/Day Years Used Date Smoking Tobacco: Never Smokeless Tobacco: Never Comments No Sex and Gender Information Value Date Recorded Sex Assigned at Not on file Legal Sex Female 6:56 AM TILER Gender Identity Not on file Sexual Orientation Not on file Last Filed Vital Signs Vital Sign Reading Time Taken Comments Blood Pressure 121/62 08/21/2019 2:32 PM CDT obtained at home Pulse 81 05/20/2017 4:15 PM TILER Temperature 36.4 C (97.5 F) 04/06/2020 10:31 AM TILER Respiratory Rate - - Oxygen Saturation - - Inhaled Oxygen Concentration - - Weight 48.1 kg (106 lb) 04/06/2020 10:3 1 AM TILER Height 156.2 cm (5' 1.5 ) 11/25/2018 2: 59 PM CDT Body Mass Index - - Plan of Treatment Health Maintenance Due Date Last Done Comments HIV SCREENING 01/24/2016 HPV VACCINE (1 - 3-dose series) 01/24/2016 MENINGOCOCCAL (Group B) VACC INE SHARED DECISION-MAKING (1 of 2 - Standard) 2017 HEPATITIS C SCREENING 01/19/2019 CHLAMYDIA/GONORRHEA SCREENING 11/05/2020 11/06/2019, 12/30/2017 DTAP/TDAP/TD VACCINES (7 - T d or Tdap) 02/28/2022 02/29/2012, 07/25/2006, 08/04/2002, Additional history exists COVID-19 VACCINE (1 2023-2 5 season) 2023 DEPRESSION SCREENING 04/15/2024 INFLUENZA VACCINE (Season Ended) 2024 02/17/2018, 02/29/2012, 02/28/2008, Additional history exists ZOSTER VACCINE (1 of 2) 2051 HEPATITIS B VACCINE Completed 2001, 2001, 2001 PNEUMOCOCCAL VACCINE Completed 03/09/2002, 2001, 2001, Additional history exists HIB VACCINE Completed 10/05/2002, 07/14, 2001, Additional history exists MENINGOCOCCAL GROUPS A/C/Y/W VACCINE Completed 11/25/2018, 10/23/2013 Goals Goal Patient Goal Type Associated Problems Recent Progress Patient-Stated? Author Use safety retraint in car Lifestyle On track( 020 9:51 AM CDT) No Shilpi Elizondo RN Procedures Procedure Name Priority Date/Time Associated Diagnosis Comments CHLAMYDIA + GC AMPLIFIED PROBE Routine 11/06/2019 10:14 AM CDT Dysuria from Last 3 Months or Most Recently Relevant to Health Maintenance Results * CHLAMYDIA + GC AMPLIFIED PROBE (11/06/2019 10:14 AM CDT) Chlamydia SAÚL Urine Negative Negative [facility] ACCOUNT BILL GC SAÚL Urine Negative Negative [facility] ACCOUNT BILL Microbiology URINE / Unknown 11/06/2019 1 0:14 AM CDT 11/06/2019 Narrative Resulting Agency Comment Lab Testing performed at: [address] [place] [id number] [place] Ana Urbina MD LAB - MICROBIOLOGY ORDERABLES Final Result [facility] ACCOUNT BILL [address] [place] [address] from Last 3 Months or Most Recently Relevant to Health Maintenance Insurance * Guarantor: BRUNA LEAL Account Type Relation to Patient Date of Phone Billing Address Personal/Family [address] [place] [address] Care Teams Molybdenum Steamer Operator Relationship Specialty Start Date End Date Ana Urbina MD PCP - General Pediatrics 06/25/14
[2024-09-08 08:00] VITALS: BP 117/72; PULSE 86; RESP 15; TEMP 37.2; O2SAT 100
--- NOTE | 2024-09-08 09:05 | PM.HPGS ---
History of Present Illness History of Present Illness Consent: Risks, benefits, and alternatives have been discussed and questions answered. Patient agrees to proceed with procedure. Chief complaint: Sacroiliitis Narrative: Tiffany Leal is a 24 year old female with chronic, recalcitrant and disabling left lumbosacral back pain secondary to sacroiliitis, sacroiliac joint arthropathy with failure to respond to aggressive conservative measures including PT, oral and topical analgesics, opioid and nonopioid analgesics, rest, time and activity/behavioral modification over the past 1-2 years who presents for intra-articular steroid injection of the left sacroiliac joint under fluoroscopic guidance and with contrast control. Review of Systems Review of Systems: Patient denies any new infectious, allergic, cardiopulmonary, neurologic or constitutional symptoms or changes in activity tolerance or exercise capacity including new or progressive SOB/RENAE, peripheral edema, productive cough, dysuria, nausea/vomiting, diarrhea, weight change, fevers/chills/night sweats, new or progressive neurologic deficit, cognitive or mood changes since last seen, except as documented in the HPI. All systems reviewed & are unremarkable except as noted in HPI and below PMFSH Past Medical History Medical History Anxiety Depression Migraine Anemia Surgical History Surgical History No pertinent past surgical history Family History Family History Mother Asthma Hypertension Depression Anxiety Father Hypertension Sibling Hypertension Grandparent Hypertension Social History Social History Smoking status: Never smoker Second hand tobacco smoke exposure: Yes Alcohol intake: current Drinks per week: 2 Substance use: never Substance use type: does not use Lack of Transportation: No Lack of Food: Never True Current Housing: I Have Housing Concerned About Future Housing: No Difficulty Paying Gas/Electric Bills: No Difficulty Paying for Meds: No Currently Unemployed: No Education: High School Diploma/GED Difficulty w/ Childcare or Family Care: No Living arrangements: with family Gender identity (if verbalized by the patient): Female Spiritual care concerns: No Meds Home Medications and Allergies Home Medications ?Medication ?Instructions ?Recorded ?Confirmed ?Type norethindrone 1 mg-ethinyl 1 tablet PO DAILY 01/16/21 09/08/24 History estradiol 10 mcg (24)-iron 10 mcg(2) tablet (Lo Loestrin Fe) sumatriptan succinate 50 mg tablet 50 mg PO Q2H PRN migraine headache 05/02/24 09/08/24 History lisdexamfetamine 20 mg capsule 20 mg PO .noon 07/07/24 09/08/24 History lisdexamfetamine 60 mg capsule 60 mg PO QAM 07/07/24 09/08/24 History Allergies Allergy/AdvReac Type Severity Reaction Status Date / Time No Known Allergies Allergy Verified 09/08/24 07:59 Vital Signs Vital Signs - 24 hr 09/08/24 08:00 Temperature 98.9 F Pulse Rate 86 Respiratory Rate 15 Blood Pressure 117/72 Pulse Oximetry 100 Oxygen Delivery Room Air Exam Narrative: The patient's physical exam is essentially unchanged from prior examination on 06/01/2024. Specifically, patient demonstrates normal lung capacity, tidal volume and respiratory rate without wheezes, crackles, rales or rubs. Heart rate and rhythm are regular without murmurs, gallops or rubs. No JVD. Pulses 2+ globally without increasing peripheral edema. AAOx3 with no evidence of confusion, intoxication or altered mental state, NC/AT without acute distress or altered consciousness. Speech, cognition, mood, insight and judgment at baseline and within normal limits. Assessment and Plan Assessment and plan (1) Dorsalgia: Code(s): M54.9 - Dorsalgia, unspecified Status: Acute (2) Sacroiliitis: Code(s): M46.1 - Sacroiliitis, not elsewhere classified Status: Acute Assessment and Plan: Proceed as planned with intra-articular steroid injection of the left sacroiliac joint under fluoroscopic guidance and with contrast control. (3) Arthropathy of sacroiliac joint: Code(s): M47.818 - Spondylosis without myelopathy or radiculopathy, sacral and sacrococcygeal region Status: Acute
--- NOTE | 2024-09-08 09:07 | WPDHPUPDATE1 ---
History and Physical Update Update Date/Time: 09/08/24 09:07 History and Physical has been reviewed, including an updated exam of the patient. There are NO changes in the patient's condition. Risks, benefits, and alternatives have been discussed and questions answered. Patient agrees to proceed with procedure.
--- NOTE | 2024-09-08 09:08 | W.PM.PROC2 ---
Procedure Note - Detailed Date of Procedure 09/08/24 Pre-op Diagnosis Sacroiliitis Post-op Diagnosis Same Procedure Performed Left Sacroiliac Joint Steroid Injection under Fluoroscopic Guidance and with Contrast Control. Surgeon Samuel Earl MD Iron Miner Blasting None Anesthesia Local Description of Procedure INFORMED CONSENT: Risks, benefits and alternatives to the procedure were discussed in detail with the patient who expressed explicit understanding and consent to proceed. Patient was informed verbally and in written form regarding the risks associated with the procedure including the low risk of serious infection, bleeding/bruising, allergic reaction, nerve or organ injury, paralysis, procedural site pain or discomfort, worsening pain and/or mobility, failure to treat and/or disfigurement. The patient expressed explicit understanding and consent to proceed. All materials required for the procedure were available prior to procedure start. Site and side were marked prior to procedure and confirmed in the presence of the patient. PROCEDURE IN DETAIL: The patient was brought to the procedural suite and placed in the prone position. Patient was made comfortable with use of pillows under the head/chest, hips and ankles. Skin overlying the injection site on the affected side(s) was prepared broadly with ChloraPrep applicator and draped in a sterile manner. Aseptic technique was used throughout. The left SI joint was identified in the AP view and contralateral oblique angulation with caudal tilt was utilized to optimize visualization of the inferior and medial joint line representing the posterior portion of the joint. Local anesthesia was established by infiltration with approximately 5 mL of 2% lidocaine via a 1-1/2 inch 27-gauge needle. A 22-gauge 3.5 inch Quincke spinal needle was advanced until the needle entered the inferior third of the joint space approximately 1cm cephalad from its most inferior point. In the AP view, 0.5 mL of Omnipaque 300 contrast medium was injected after negative aspiration for CSF, blood or other bodily fluid, showing appropriate intra-articular spread of contrast without evidence of intravascular, perineural or intrathecal placement. A 1.5 mL solution containing 6 mg of betamethasone in 0.5% PF bupivacaine was injected after repeat negative aspiration. Appropriate spread of the injectate was confirmed with washout of previous injected contrast. No parasthesias were elicited. Needle was removed completely intact without difficulty. Images were saved and documented in the patient chart. Patient's skin was cleansed and sterile bandage applied. The patient tolerated the procedure well. The patient was transported to the recovery area in stable condition where they were observed for an appropriate amount of time prior to discharge, without evidence of complication. The patient was instructed to avoid excessive activity for the next 48 hours, including climbing and frequent use of stairs. Showers only for 48 hours. They were instructed not to drive or operate heavy machinery for 24 hours. They are to monitor for severe headaches, fevers, chills, night sweats, erythema/swelling at the site or any other signs of infection, bleeding/bruising, bowel or bladder changes as well as new pain, weakness or numbness in the upper or lower extremity. Should they notice these changes, they are instructed to call our office immediately or report directly to the nearest Emergency Department if no answer or if after posted office hours. COMPLICATIONS: None COMMENTS: None CONTRAST WASTED: 29mL Omnipaque 300. Complications No immediate complications Condition Stable Disposition Same day [facility] Billing Surgery - Charge Forward: Surgery Billing
[2024-09-08 09:15] VITALS: BP 108/81; PULSE 116; RESP 24; O2SAT 100
[2024-09-08] MEDS: BETAMETHASONE SODIUM PHOSPHATE PF INJ 6 MG/ML VIAL INFILTRATE (09:16)
[2024-09-08] MEDS: BUPivacaine HCL 0.5% 10 ML AMP INFILTRATE (09:17)
[2024-09-08] MEDS: LIDOCAINE 1% PF INJ 5 ML VIAL INFILTRATE (09:19)
[2024-09-08 09:22] VITALS: BP 117/86; PULSE 80; RESP 15; O2SAT 100
== END 2024-09-08 09:33 | disposition home or self-care (01) ==
PROVIDERS: PCP Family Medicine; Visit Provider Anesthesiology Pain Medicine
PROC: (CPT 27096; principal; 2024-09-08 08:55)
DX: M46.1 Sacroiliitis, not elsewhere classified (principal)
CPT/HCPCS: 27096; 99199; G0260

== ENCOUNTER 2024-10-05 08:10 | Day surgery (SDC) | payer OTHER, SELFPAY ==
[2024-10-02 08:02] VITALS: BMI 20.4
--- NOTE | ~2024-10-05 | XR_ITS ---
INTRAOPERATIVE FLUOROSCOPY: CLINICAL HISTORY: 24 years old Female; RIGHT INTRA ARTICULAR SACROILIAC JOINT STEROID INJECTION PROCEDURE COMMENTS: Limited intraoperative fluoroscopy of the SI joint was performed. CUMULATIVE DOSE: 5 mGy FLUOROSCOPY TIME: 39 seconds FINDINGS/IMPRESSION: Please refer to operative note for further details. Reviewed, dictated and finalized at location A.
[2024-10-05 08:57] VITALS: BP 110/85; PULSE 88; RESP 14; TEMP 36.6; O2SAT 100; BMI 20.5
--- NOTE | 2024-10-05 09:02 | WPDHPUPDATE1 ---
History and Physical Update Update Date/Time: 10/05/24 09:02 History and Physical has been reviewed, including an updated exam of the patient. There are NO changes in the patient's condition. Risks, benefits, and alternatives have been discussed and questions answered. Patient agrees to proceed with procedure.
--- NOTE | 2024-10-05 09:03 | W.PM.PROC2 ---
Procedure Note - Detailed Date of Procedure 10/05/24 Pre-op Diagnosis Spondylosis w/o Myelopathy or Radiculopathy, Post-op Diagnosis Same Procedure Performed Right Sacroiliac Joint Steroid Injection under Fluoroscopic Guidance and with Contrast Control. Surgeon Samuel Earl MD Continuous Linter Drier Operator None Anesthesia Local Description of Procedure INFORMED CONSENT: Risks, benefits and alternatives to the procedure were discussed in detail with the patient who expressed explicit understanding and consent to proceed. Patient was informed verbally and in written form regarding the risks associated with the procedure including the low risk of serious infection, bleeding/bruising, allergic reaction, nerve or organ injury, paralysis, procedural site pain or discomfort, worsening pain and/or mobility, failure to treat and/or disfigurement. The patient expressed explicit understanding and consent to proceed. All materials required for the procedure were available prior to procedure start. Site and side were marked prior to procedure and confirmed in the presence of the patient. PROCEDURE IN DETAIL: The patient was brought to the procedural suite and placed in the prone position. Patient was made comfortable with use of pillows under the head/chest, hips and ankles. Skin overlying the injection site on the affected side(s) was prepared broadly with ChloraPrep applicator and draped in a sterile manner. Aseptic technique was used throughout. The right SI joint was identified in the AP view and contralateral oblique angulation with caudal tilt was utilized to optimize visualization of the inferior and medial joint line representing the posterior portion of the joint. Local anesthesia was established by infiltration with approximately 5 mL of 2% lidocaine via a 1-1/2 inch 27-gauge needle. A 22-gauge 3.5 inch Quincke spinal needle was advanced until the needle entered the inferior third of the joint space approximately 1cm cephalad from its most inferior point. In the AP view, 0.5 mL of Omnipaque 300 contrast medium was injected after negative aspiration for CSF, blood or other bodily fluid, showing appropriate intra-articular spread of contrast without evidence of intravascular, perineural or intrathecal placement. A 1.5 mL solution containing 6 mg of betamethasone in 0.5% PF bupivacaine was injected after repeat negative aspiration. Appropriate spread of the injectate was confirmed with washout of previous injected contrast. No parasthesias were elicited. Needle was removed completely intact without difficulty. Images were saved and documented in the patient chart. Patient's skin was cleansed and sterile bandage applied. The patient tolerated the procedure well. The patient was transported to the recovery area in stable condition where they were observed for an appropriate amount of time prior to discharge, without evidence of complication. The patient was instructed to avoid excessive activity for the next 48 hours, including climbing and frequent use of stairs. Showers only for 48 hours. They were instructed not to drive or operate heavy machinery for 24 hours. They are to monitor for severe headaches, fevers, chills, night sweats, erythema/swelling at the site or any other signs of infection, bleeding/bruising, bowel or bladder changes as well as new pain, weakness or numbness in the upper or lower extremity. Should they notice these changes, they are instructed to call our office immediately or report directly to the nearest Emergency Department if no answer or if after posted office hours. COMPLICATIONS: None COMMENTS: None CONTRAST WASTED: 29.5 mL Omnipaque 300. Complications No immediate complications Condition Stable Disposition Same day [facility] Billing Surgery - Charge Forward: Surgery Billing
[2024-10-05 09:35] VITALS: BP 112/53; PULSE 86; RESP 18; O2SAT 100
[2024-10-05 09:39] VITALS: BP 116/60; PULSE 90; RESP 21; O2SAT 98
[2024-10-05] MEDS: BETAMETHASONE SODIUM PHOSPHATE PF INJ 6 MG/ML VIAL INFILTRATE (09:42)
[2024-10-05] MEDS: LIDOCAINE 1% PF INJ 5 ML VIAL INFILTRATE (09:42)
[2024-10-05] MEDS: BUPivacaine HCL 0.5% 10 ML AMP INFILTRATE (09:42)
[2024-10-05 09:43] VITALS: BP 106/81; PULSE 79; RESP 18; O2SAT 100
== END 2024-10-05 09:54 | disposition home or self-care (01) ==
PROVIDERS: PCP Family Medicine; Visit Provider Anesthesiology Pain Medicine
PROC: (CPT 27096; principal; 2024-10-05 09:10)
DX: M46.1 Sacroiliitis, not elsewhere classified (principal); M47.816 Spondylosis without myelopathy or radiculopathy, lumbar region; R20.2 Paresthesia of skin
CPT/HCPCS: 27096; 99199; G0260

== ENCOUNTER 2025-01-29 12:33 | Outpatient (CLI) | payer OTHER, SELFPAY ==
--- NOTE | 2025-01-29 12:38 | ECG_ITS ---
Test Date: 2025-01-29 12:55:05 Measurements Intervals [place] Rate: 88 P: 49 NC: 138 QRS: 67 QRSD: 72 T: 39 QT: 327 QTc: 396 Interpretive Statements SINUS RHYTHM NORMAL ECG No previous ECG available for comparison Electronically Signed On 01-29-2025 15:09:47 CDT by Gael Hamilton D.O.
--- OUTSIDE RECORDS SUMMARY | 2025-01-29 12:52 | XMS_ITS | Clinical Summary ---
Author Organization [facility] [employer] Address [address] [place] [address] Care Team Providers Care Leach Tank Tender Name Role Phone Ana Urbina MD Primary Care Provider [phone] Source Comments [facility] [employer],non-owned Affiliates and Associated Physician Practices is amultiple site organization consisting of ambulatory clinics and hospital sitesin [place], [place], [place] and [place]. This disclosure is being madepursuant to the Care Everywhere program and may not contain all information available regarding this patient. Last updated 18.[facility] [employer] Allergies No known active allergies Medications * [...] on file Legal Sex Female 6:56 AM SOLAR INSTALLATION HELPER Gender Identity Not on file Sexual Orientation Not on file Last Filed Vital Signs Vital Sign Reading Time Taken Comments Blood Pressure 121/62 08/21/2019 2:32 PM CDT obtained at home Pulse 81 05/20/2017 4:15 PM SOLAR INSTALLATION HELPER Temperature 36.4 C (97.5 F) 04/06/2020 10:31 AM SOLAR INSTALLATION HELPER Respiratory Rate - - Oxygen Saturation - - Inhaled Oxygen Concentration - - Weight 48.1 kg (106 lb) 04/06/2020 10:3 1 AM SOLAR INSTALLATION HELPER Height 156.2 cm (5' 1.5) 11/25/2018 2: 59 PM CDT Body Mass Index - - Plan of Treatment Health Maintenance Due Date Last Done Comments HIV SCREENING 01/24/2016 HPV VACCINE (1 - 3-dose series) 01/24/2016 HEPATITIS C SCREENING 01/19/2019 CHLAMYDIA/GONORRHEA SCREENING 11/05/2020 11/06/2019, 12/30/2017 DTAP/TDAP/TD VACCINES (7 - Td or Tdap) 02/28/2022 02/29/2012, 07/25/2006, 08/04/2002, Additional history exists DEPRESSION SCREENING 04/15/2024 COVID-19 VACCINE ( season) 2024 INFLUENZA VACCINE (#1) 2024 8, 02/29/2012, 02/28/2008, Additional history exists ZOSTER VACCINE (1 of 2) 2051 HEPATITIS B VACCINE Completed 2001, 2001, 2001 PNEUMOCOCCAL VACCINE Completed 03/09/2002, 2001, 2001, Additional history exists HIB VACCINE Completed 10/05/2002, 07/14, 2001, Additional history exists MENINGOCOCCAL GROUPS A/C/Y/W VACCINE Completed 11/25/2018, 10/23/2013 MENINGOCOCCAL (Group B) VACCINE SHARED DECISION-MAKING Aged Out No longer eligible based on patient's age to complete this topic Goals Goal Patient Goal Type Associated Problems [...] Resulting Agency Comment Lab Testing performed at: [address] [place] [id number] [place] Ana Urbina MD LAB - MICROBIOLOGY ORDERABLES Final Result [facility] ACCOUNT BILL [address] [place] [address] from Last 3 Months or Most Recently Relevant to Health Maintenance Insurance * Guarantor: BRUNA LEAL Account Type Relation to Patient Date of Phone Billing Address Personal/Family [address] [place] [address] Care Teams Leach Tank Tender Relationship Specialty Start Date End Date Ana Urbina MD PCP - General Pediatrics 06/25/14
--- OUTSIDE RECORDS SUMMARY | 2025-01-29 12:52 | XMS_ITS | Clinical Summary ---
Author Organization [facility] Address [address], [facility] [address] [place] [address] Phone Care Team Providers Care Social Work Supervisor Name Role Phone Marco Antonio Perez MD Unavailable [place] Primary Care Provider Allergies No known active allergies Medications Lo Loestrin Fe 1 MG-10 MCG / 10 MCG Tablet Take 1 Tablet by mouth daily. 2 Active Cholecalciferol (Vitamin D3) 1.25 MG (81922 UT) Capsule TAKE ONE CAPSULE BY MOUTH [...] 9:02 AM CDT Height 154.9 cm (5' 1) 09/04/2021 9:02 AM CDT Body Mass Index 21.35 09/04/2021 9:02 AM CDT Plan of Treatment Health Maintenance Due Date Last Done Comments Hepatitis C Virus (HCV) Screening 2001 Human Papillomavirus (HPV) Immunization (1 - 3-dose series) 01/24/2016 Meningococcal B Immunization (1 of 2 - Standard) 2017 Influenza Immunization (#1) 12/14/202408/2017, 02/29/2012, 02/28/2008, Additional history exists SARS-COV-2 Immunization ( season) 2024 Respiratory Syncytial Virus (RSV) Immunization (Adult) (1 [...] this topic Insurance [employer] Care Teams Social Work Supervisor Relationship Specialty Start Date End Date [place] PAC [address] [place] [address] PCP - General Physician Logistics/Shipper 09/04/21 Marco Antonio Perez MD [address] [place] [phone] Consulting Physician Oncology 07/27/21
--- OUTSIDE RECORDS SUMMARY | 2025-01-29 12:52 | XMS_ITS | Encounter Summary ---
Author Organization [facility] Address [address] [place] [address] Care Team Providers Care Charger Operator Helper Name Role Phone Ana Urbina MD Primary Care Provider [phone] Encounter Details Date Type Department Care Team (Late st Contact Info) Description 01/22/2015 [facility] Outpatient Visit [facility] [address] [place] [address] Unknown, Provider Social History Tobacco Use Types Packs/Day Years Used Date Smoking Tobacco: Never Assessed Comments No Sex and Gender Information Value Date Recorded Sex Assigned at Not on file Legal Sex Female 6:56 AM TEST AND TURN UP TECHNICIAN Gender Identity Not on file Sexual Orientation [...] Under Investigation 04/06/2020 04/06/2020 04/06/2020 11:17 AM TEST AND TURN UP TECHNICIAN COVID-19 Confirmed 04/06/2020 04/06/2020 1 4:33 AM TEST AND TURN UP TECHNICIAN documented as of this encounter Care Teams Charger Operator Helper Relationship Specialty Start Date End Date Ana Urbina MD PCP - General Pediatrics 06/25/14 documented as of this encounter
--- OUTSIDE RECORDS SUMMARY | 2025-01-29 12:52 | XMS_ITS | Patient Health Record ---
Author Organization [employer] [place] ([address]) Address [address] [address] Care Team Providers Care Adobe Flex Developer Name Role Phone Judith Frankel Primary Care Provider Yessy Grimm Unavailable [phone] Allergies No Known Allergies Reason For Referral No Information Medications Medication SIG (Take, Route, Frequency, Duration) Notes Start Date End Date Status Triamcinolone Acetonide 0.1 % 1 application Externally Twice a day; Duration: 30 days 02/05/2024 Active SUMAtriptan Succinate 50 [...] never smoker Additional Findings:Tobacco Non-User Non-smoker for restorationist reasons Problems Problem Type SNOMED Code ICD Code Onset Dates Problem Status W/U Status Risk Notes Problem Mild major depression, single episode (21267328) Major depressive disorder, single episode, mild (F32.0) Active confirmed Problem Generalized anxiety disorder (20959065) Generalized anxiety disorder (F41.1) Active confirmed Problem Cataplexy and narcolepsy (354228794) 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 [address] [address] [place] [address] [phone] [id number] Kash Leal Child - Insured has Financial Responsibility 4 Medical (General) History Medical History History ICD Code Generalized anxiety disorder F41.1 Major depressive disorder, single episod e, mild F32.0 Narcolepsy with cataplexy G47.411 Surgical History Surgery Date(Month/Year) Hospitalization History Reason Date(Month/Year)
--- NOTE | 2025-02-05 12:15 | WPDHOLTEREM ---
Holter/Event Monitor Holter/Event Monitor Date of procedure: 01/29/25 Holter/Event Procedure: 3-7 Day Holter Monitor Indications: Palpitations Conclusion: 1. 3 days holter monitor on 01/29/25. 2. Underlying rhythm is sinus rhythm. HR range 61-185 bpm; average HR 103 bpm. HR at 185 bpm was on 01/31/25 at 9:06 pm. 3. There are rare premature supraventricular complexes. No supraventricular tachycardia. 4. There are rare premature ventricular complexes, rare ventricular couplets, longest ventricular bigeminy was 2.7 seconds, and longest ventricular trigeminy was 4.5 seconds. No ventricular tachycrdia. 5. No significant pauses greater than 3 seconds. 6. Patient reports 9 episodes of symptoms of irregular beats, flutter, heart racing, chest pain which demonstrate sinus rhythm, HR range 93-134 bpm with 6 episodes with PVC's.
== END 2025-01-29 12:34 | disposition home or self-care (01) ==
LOC: ANHCARD 12:34
PROVIDERS: PCP Family Medicine; Visit Provider Student in an Organized Health Care Education/Training Program
DX: R00.2 Palpitations (principal)
CPT/HCPCS: 93005; 93242